=== PATIENT | male | born 1995 | race African-American/Black ===

== ENCOUNTER 2024-01-08 18:57 | Emergency (ER) | payer SELFPAY ==
[~2024-01-08] VITALS: Ht 182.9 cm; Wt 66.8 kg
[2024-01-08 19:05] VITALS: BP 95/63; PULSE 127; TEMP 98
[2024-01-08 22:16] LABS: TRICYCLIC ANTIDEPRESS URINE NEGATIVE (NEGATIVE)
[2024-01-08 22:23] LABS: ALCOHOL(ethanol),MEDICAL < 10 mg/dL (0-10); SALICYLATE < 5.0 mg/dL (15.0-30.0)
== END 2024-01-09 00:07 | disposition home or self-care (01) ==
LOC: COL.ER 18:57
PROVIDERS: Nurse Practitioner Primary Care
DX: R44.0 Auditory hallucinations (principal); F17.200 Nicotine dependence, unspecified, uncomplicated